=== PATIENT | female | born 1975 | race Caucasian/White ===

== ENCOUNTER 2021-12-10 08:35 | Emergency (ER) | payer OTHER ==
[~2021-12-10] VITALS: Ht 162.6 cm; Wt 58.1 kg
[2021-12-10 08:54] VITALS: BP 137/93
--- NOTE | 2021-12-10 09:02 | NUR ---
Patient ambulated to bed 5.
--- NOTE | 2021-12-10 09:22 | NUR ---
DR LEONARD AT BEDSIDE EVALUATING PT
[2021-12-10] MEDS ORDERED: KETOROLAC 60 MG/2 ML VIAL IM ONE (09:25)
[2021-12-10] MEDS ORDERED: LORazepam 1 MG TAB PO ONE (09:25)
[2021-12-10] MEDS ORDERED: ONDANSETRON 4 MG ODT PO ONE (09:25)
[2021-12-10] MEDS ORDERED: LIB25 PO (09:58)
[2021-12-10] MEDS ORDERED: LOPE-289 PO (09:58)
[2021-12-10] MEDS ORDERED: ONDA8TAB87 PO (09:58)
[2021-12-10 10:08] VITALS: BP 121/74
--- NOTE | 2021-12-10 10:12 | NUR ---
46YO FEMALE PT C/O ALCOHOL WITHDRAWAL XYESTERDAY. REPORTS ABDOMINAL PAIN, DIARRHEA, CHILLS AND NAUSEA X3 DAYS. DENIES BLOOD IN DIARRHEA .STATES LAST DRINK WAS AT 3PM YESTERDAY. DENIES TAKING MEDICATION FOR PAIN. PRESENTS WITH CHILLS . DENIES VOMIT, CHEST PAIN OR SOB. PT AAAOX4, HOB POSITIONED PER COMFORT. BED AT LOWEST POSITION, BED RAIL UP X2. HX: DENIES NKA
[2021-12-10] MEDS ORDERED: TRAZ-343 PO (10:30)
--- NOTE | 2021-12-10 10:30 | NUR ---
Patient discharged with v/s stable. Written and verbal after care instructions ABOUT ALCOHOL WITHDRAWAL SYNDROME given and explained. Patient alert, oriented and verbalized understanding of instructions. Ambulatory with steady gait. All questions addressed prior to discharge. ID band removed. Patient advised to follow up with PMD. Rx of TRAZADONE, LIBRIUM, IMODIUM, AND ZOFRAN given. Patient educated on indication of medication including possible reaction and side effects. Opportunity to ask questions provided and answered.
== END 2021-12-10 10:30 | disposition home or self-care (01) ==
LOC: MED 08:35
DX: F10.239 Alcohol dependence with withdrawal, unspecified (principal); R11.2 Nausea with vomiting, unspecified; R19.7 Diarrhea, unspecified; F17.200 Nicotine dependence, unspecified, uncomplicated
CPT/HCPCS: 96372; 99283; J1885; Q0162